=== PATIENT | female | born 1985 | race Caucasian/White ===

== ENCOUNTER 2016-10-23 02:10 | Outpatient (CLI) | payer MEDICAID ==
[~2016-10-23] VITALS: Ht 167.6 cm; Wt 74.0 kg
--- NOTE | 2016-10-23 02:31 | PN ---
Date/Time of Note Date/Time of Note DATE: 10/23/16 TIME: 02:29 OB Subjective Subjective Subjective 30 yo P1 @ 39 wks, presents w VB, no LOF, irreg ctx, good FM POB- x 1 PMH- gastritis PSH- open appendectomy Meds- none NKDA OB Objective Objective Objective Patient not yet on monitor OB Assessment/Plan Other Assessment: patient came to r/o labor Other plan: patient to be placed on monitor nursing to to E to assess if patient is in labor STEPH DAMIAN MD October 23, 2016 02:31
[2016-10-23 02:46] VITALS: Ht 167.6 cm; Wt 74.0 kg
--- NOTE | 2016-10-23 03:41 | PN ---
Date/Time of Note Date/Time of Note DATE: 10/23/16 TIME: 03:40 OB Subjective Subjective Subjective addendum: SVE: 1-60/-3 FHT- Cat 1 [place]- irreg ctx Patient not in active labor reassuring FHT d/c home STEPH DAMIAN MD October 23, 2016 03:41
== END 2016-10-23 03:50 | disposition home or self-care (01) ==
LOC: L-D 02:10 → OBT 02:10
PROVIDERS: ATTEND Obstetrics & Gynecology
DX: O26.893 Other specified pregnancy related conditions, third trimester (principal); Z3A.39 39 weeks gestation of pregnancy
CPT/HCPCS: G0463

== ENCOUNTER 2016-10-23 15:40 | Inpatient (IN) | payer MEDICAID ==
[~2016-10-23] VITALS: Ht 165.1 cm; Wt 84.1 kg
[2016-10-23 16:13] VITALS: Ht 165.1 cm; Wt 84.1 kg
[2016-10-23 16:14] VITALS: BP 118/56; PULSE 69; RESP 18
[2016-10-23] MEDS ORDERED: LACTATED RINGER'S 1,000 ML IV SCH (16:15)
[2016-10-23] MEDS ORDERED: MISOPROSTOL 200 MCG TAB PR PRN (16:30)
[2016-10-23] MEDS ORDERED: CARBOPROST 250 MCG INJ IM PRN (16:30)
[2016-10-23] MEDS ORDERED: METHYLERGONOVINE 0.2 MG INJ IM PRN (16:30)
[2016-10-23] MEDS ORDERED: BUTORPHANOL 2 MG INJ IV PRN (16:30)
[2016-10-23] MEDS ORDERED: OXYTOCIN 30 UNITS/LR 500 ML IV SCH (16:30)
[2016-10-23] MEDS ORDERED: LIDOCAINE 1% (MPF) 30 ML INJ INJ PRN (16:30)
[2016-10-23] MEDS ORDERED: IBUPROFEN 600 MG TAB PO PRN (16:30)
[2016-10-23] MEDS ORDERED: OXYTOCIN 30 UNITS/LR 500 ML IV PRN (16:30)
[2016-10-23] MEDS ORDERED: MINERAL OIL LIGHT 10 ML VIAL TOP ONE (16:30)
--- NOTE | 2016-10-23 16:41 | TRIAGE ---
OB Triage Datetime Report Generated by CPN: 10/23/2016 16:41 Datetime: 10/23/2016 16:17 Headache: Denies Blurred Vision: No RUQ Epigastric Pain: Denies Facial Edema: None Labor Evaluation Frequency: 3-4 Monitor Mode: External Duration (sec)2399: 60 Quality: Moderate Pattern: Normal: <= 5 Contractions in 10 Minutes Resting Tone [place]: Relaxed Heart Rate FHR Baseline Rate: 155 Monitor Mode: External US FHR Baseline Changes: No Baseline Change Variability: Moderate 6-25 bpm Accelerations: 15X15 Decelerations: None Category: Category I Pain Assessment Pain Scale: 6 Pain Presence: Intermittent Pain Type: Contraction Pain Location: Abdomen Pain Relief Measures: Comfort Measures Vaginal Exam Dilatation (cms): 5.0 Effacement (%): 90 Station: -1 Exam By: rosalino rnc Vaginal Bleeding: Normal Show Cervix, Consistency: Soft Cervix, Position: Anterior Presentation 'A': Cephalic Datetime: 10/23/2016 16:00 Time of Arrival: 10/23/2016 16:00 EGA: 39.3 Arrived By: Ambulatory Arrived From: Home Chief Complaint: contractions Movement: Present Time Contractions Began: 10/23/2016 06:00 Rupture of Membranes: Denies Vaginal Discharge: Denies Recent Sexual Intercouse: Denies Abdominal Trauma: Not Applicable Patient Complaints: Contractions Time Provider Notified: 10/23/2016 16:30 Provider Notified: Dr Son Initial Plan: efm/ sve Datetime: 10/23/2016 03:44 Labor Evaluation Frequency: 1-3 Monitor Mode: External Duration (sec)2399: 60-90 Quality: Mild Pattern: Normal: <= 5 Contractions in 10 Minutes Resting Tone [place]: Relaxed Heart Rate FHR Baseline Rate: 145 Monitor Mode: External US FHR Baseline Changes: No Baseline Change Variability: Moderate 6-25 bpm Accelerations: 15X15 Decelerations: None Category: Category I Datetime: 10/23/2016 03:12 Membrane Status: Intact Datetime: 10/23/2016 03:00 Labor Evaluation Frequency: 3 Monitor Mode: External Duration (sec)2399: 90-100 Pattern: Normal: <= 5 Contractions in 10 Minutes Heart Rate FHR Baseline Rate: 145 Monitor Mode: External US FHR Baseline Changes: No Baseline Change Variability: Moderate 6-25 bpm Accelerations: 15X15 Datetime: 10/23/2016 02:55 Assessment Type: Triage Maternal Assessment Level of Consciousness: Fully Conscious Headache: Denies Blurred Vision: No Respiratory Effort: Unlabored; Regular Rhythm; Equal Expansion Nausea/Vomiting: Denies RUQ Epigastric Pain: Denies Facial Edema: None Fall Risk Assessment History of Falling: (0) No Secondary Diagnosis: (0) No Ambulatory Aid: (0) Bedrest/Nurse Assist IV Therapy: (0) No Gait: (0) Normal/Bedrest/Immobile Mental Status: (0) Oriented to Own Ability Fall Score: 0 Fall Risk Score Definition: No Risk: No action required Datetime: 10/23/2016 02:54 Time of Arrival: 10/23/2016 02:54 EGA: 39.3 Arrived By: Ambulatory Arrived From: Home Datetime: 10/23/2016 02:52 Time of Arrival: 10/23/2016 02:10 Arrived By: Wheelchair Arrived From: Home Chief Complaint: UC'S SINCE MIDNIGHT Movement: Present Contractions: Regular Contractions: Q10MIN Rupture of Membranes: Denies Vaginal Discharge: Denies Recent Sexual Intercouse: Denies Abdominal Trauma: Not Applicable Patient Complaints: Contractions Time Provider Notified: 10/23/2016 02:30 Provider Notified: RICKIE Initial Plan: EFViv SVE Datetime: 10/23/2016 02:49 Pain Assessment Pain Scale: 4 Pain Presence: Intermittent Pain Type: Contraction Pain Location: Abdomen Pain Relief Measures: Comfort Measures Vaginal Exam Dilatation (cms): 1.5 Effacement (%): 60 Station: -3 Exam By: GSTTTLILLY Vaginal Bleeding: None Cervix, Consistency: Moderate Cervix, Position: Posterior Presentation 'A': Cephalic Datetime: 10/23/2016 02:32 Stage of : OB Triage Temperature Route: Oral Datetime: 10/23/2016 02:30 Stage of : OB Triage
[2016-10-23] MEDS ORDERED: LACTATED RINGER'S 1,000 ML IV PRN (17:00)
[2016-10-23 17:05] LABS: ADD SCAN DIFF NO
[2016-10-23 17:15] LABS: BASOPHILS % 0.2 % (0.0-2.0); EOSINOPHILS % 0.3 % (0.0-7.0); HEMATOCRIT 35.9 % (37.0-47.0); HEMOGLOBIN 12.4 g/dl (12.0-16.0); LYMPHOCYTES # 0.9 10^3/ul (0.8-2.9); LYMPHOCYTES % 8.3 % (15.0-51.0); MEAN CORPUSCULAR HEMOGLOBIN 33.1 pg (29.0-33.0); MEAN CORPUSCULAR HGB CONC 34.5 g/dl (32.0-37.0); MEAN CORPUSCULAR VOLUME 95.7 fl (82.0-101.0); MEAN PLATELET VOLUME 12.1 fl (7.4-10.4); MONOCYTE # 0.7 10^3/ul (0.3-0.9); MONOCYTES % 6.2 % (0.0-11.0); NEUTROPHIL # 9.4 10^3/ul (1.6-7.5); NEUTROPHILS % 84.3 % (39.0-77.0); PLATELET COUNT 225 10^3/UL (140-415); RED BLOOD COUNT 3.75 10^6/ul (4.20-5.40); RED CELL DISTRIBUTION WIDTH 14.3 % (11.5-14.5); WHITE BLOOD COUNT 11.1 10^3/ul (4.8-10.8)
[2016-10-23 17:24] LABS: INR 0.98
[2016-10-23 17:25] LABS: PARTIAL THROMBOPLASTIN TIME 37.5 Sec (25.0-35.0)
[2016-10-23] MEDS: OXYTOCIN 30 UNITS/LR 500 ML IV SCH ×2 (21:02→21:50)
[2016-10-23 23:30] VITALS: BP 134/64; PULSE 65; RESP 20
--- NOTE | 2016-10-23 23:37 | HP ---
Date/Time of Note Date/Time of Note DATE: 10/23/16 TIME: 23:35 OB - History Hx of Present Free Text/Dictation 39+wks GA labor Care: Good Care Ultrasounds: Normal mid trimester US Obstetrical Complications: None Medical Complications: None Past Family/Social History * Past Medical, Surgical, Family and Obstetric Histories reviewed from chart. OB Admission Exam Vital Signs Vital Signs Vital Signs Date Time Temp Pulse Resp B/P Pulse Ox O2 Delivery O2 Flow Rate FiO2 10/23/16 16:14 98.0 69 18 118/56 Room Air Physical Exam Abdomen: WNL Extremities: Normal Cervical Dilatation: 7cm Effacement: 100% Station: -2 Membranes: Intact Heart Rate: 140's Accelerations: Accelerations Present Decelerations: No Decelerations Varibility: Moderate Contractions on Admission: < 5 Minutes Apart Last 72 hours Lab Results CBC & BMP 10/23/16 16:45 OB Assessment/Plan Plan: Expectant Management Other plan: anticipated LEON RDZ M.D. October 23, 2016 23:37
--- NOTE | 2016-10-23 23:38 | LDN ---
Date/Time of Note Date/Time of Note DATE: 10/23/16 TIME: 23:37 Delivery Summary Placenta Delivered: Spontaneously Meconium: none, Thick Episiotomy: No Perineal laceration: 2 Anesthesia type: None Estimated blood loss: 200 Sponge & Needle done & correct: Yes All needle counts correct: Yes Any foreign bodies felt in the: No Problems: Delivery Information Sex Sex: male Apgars 1 Minute: 8 5 Minute: 9 Suctioning Nose & mouth suctioned at linda: Yes Delee suction performed: Yes Umbilical Cord Umbilical cord with: 3 Vessels Cord presentations: no nuchal cord Cord Blood was obtained: Yes Mother & Baby Disposition Disposition Mom & Baby to Maternity; Good: Yes Baby to NICU: No LEON RDZ M.D. October 23, 2016 23:38
[2016-10-23] MEDS: LACTATED RINGER'S 1,000 ML IV* SCH (23:54)
[2016-10-24] MEDS ORDERED: LANOLIN 7 GM TUBE TOP PRN
[2016-10-24] MEDS ORDERED: SENNA/DOCUSATE NA (8.6MG/50MG) TAB PO PRN
[2016-10-24] MEDS ORDERED: ZOLPIDEM 5 MG TAB PO PRN
[2016-10-24] MEDS ORDERED: CARBOPROST 250 MCG INJ IM PRN
[2016-10-24] MEDS ORDERED: METHYLERGONOVINE 0.2 MG INJ IM PRN
[2016-10-24] MEDS ORDERED: OXYTOCIN 30 UNITS/LR 500 ML IV PRN
[2016-10-24] MEDS ORDERED: MISOPROSTOL 200 MCG TAB PR PRN
[2016-10-24] MEDS ORDERED: DIBUCAINE 1% 30 GM OINT PR PRN
[2016-10-24] MEDS ORDERED: WITCH HAZEL/GLYCERIN PAD PR PRN
[2016-10-24] MEDS ORDERED: OXYCODONE/ASPIRIN (4.88/325) TAB PO PRN
[2016-10-24] MEDS: LACTATED RINGER'S 1,000 ML IV* SCH ×2 (01:45→15:54)
[2016-10-24 03:40] VITALS: BP 116/59; PULSE 76; RESP 18
[2016-10-24] MEDS: IBUPROFEN 600 MG TAB PO SCH ×5 (05:30→23:32)
[2016-10-24 07:58] LABS: ADD SCAN DIFF NO
[2016-10-24 08:00] VITALS: BP 126/72; PULSE 69; RESP 17
[2016-10-24 08:01] LABS: BASOPHILS % 0.2 % (0.0-2.0); EOSINOPHILS % 0.3 % (0.0-7.0); HEMATOCRIT 35.3 % (37.0-47.0); HEMOGLOBIN 11.7 g/dl (12.0-16.0); LYMPHOCYTES # 1.2 10^3/ul (0.8-2.9); LYMPHOCYTES % 8.3 % (15.0-51.0); MEAN CORPUSCULAR HEMOGLOBIN 32.5 pg (29.0-33.0); MEAN CORPUSCULAR HGB CONC 33.1 g/dl (32.0-37.0); MEAN CORPUSCULAR VOLUME 98.1 fl (82.0-101.0); MEAN PLATELET VOLUME 12.2 fl (7.4-10.4); MONOCYTE # 1.3 10^3/ul (0.3-0.9); MONOCYTES % 8.7 % (0.0-11.0); NEUTROPHIL # 12.3 10^3/ul (1.6-7.5); NEUTROPHILS % 81.6 % (39.0-77.0); PLATELET COUNT 210 10^3/UL (140-415); RED CELL DISTRIBUTION WIDTH 14.3 % (11.5-14.5)
[2016-10-24] MEDS: SENNA/DOCUSATE NA (8.6MG/50MG) TAB PO SCH ×2 (09:59→20:49)
[2016-10-24 12:10] VITALS: BP 118/60; PULSE 65; RESP 16
--- NOTE | 2016-10-24 12:19 | PN ---
Date/Time of Note Date/Time of Note DATE: 10/24/16 TIME: 12:19 OB Subjective Subjective Subjective day 1 Afebrile abdomen soft uterus firm lochia normal extremity normal Laboratory Tests Test 10/23/16 16:45 10/24/16 07:12 White Blood Count 11.110^3/ul 15.010^3/ul Red Blood Count 3.7510^6/ul 3.6010^6/ul Hemoglobin 12.4g/dl 11.7g/dl Hematocrit 35.9% 35.3% Mean Corpuscular Volume 95.7fl 98.1fl Mean Corpuscular Hemoglobin 33.1pg 32.5pg Mean Corpuscular Hemoglobin Concent 34.5g/dl 33.1g/dl Red Cell Distribution Width 14.3% 14.3% Platelet Count 44153^3/UL 54880^3/UL Mean Platelet Volume 12.1fl 12.2fl Neutrophils % 84.3% 81.6% Lymphocytes % 8.3% 8.3% Monocytes % 6.2% 8.7% Eosinophils % 0.3% 0.3% Basophils % 0.2% 0.2% Nucleated Red Blood Cells % 0.0/100WBC 0.0/100WBC Neutrophils # 9.410^3/ul 12.310^3/ul Lymphocytes # 0.910^3/ul 1.210^3/ul Monocytes # 0.710^3/ul 1.310^3/ul Eosinophils # 0.010^3/ul 0.010^3/ul Basophils # 0.010^3/ul 0.010^3/ul Nucleated Red Blood Cells # 0.010^3/ul 0.010^3/ul Prothrombin Time 13.0Sec Prothrombin Time Ratio 1.0 INR International Normalized Ratio 0.98 Activated Partial Thromboplast Time 37.5Sec Current Medications Medications (Trade) Dose Ordered Sig/Luciano Route PRN Reason Start Time Stop Time Status Last Admin Dose Admin Lactated Ringer's (Lr) 1,000 ml @ 125 mls/hr Q8H IV 10/23/16 16:15 10/23/16 23:57 DC 10/23/16 16:48 Butorphanol Tartrate (Stadol) 2 mg Q2H PRN IV PAIN 10/23/16 16:30 10/23/16 23:57 DC Lidocaine 30 ml 30 ml ONCE PRN INJ EPISIOTOMY/TEARING 10/23/16 16:30 10/23/16 23:57 DC Oxytocin/Lactated Ringer's 500 ml @ 125 mls/hr ONCE -MAY REPEAT X1 IV 10/23/16 16:30 10/23/16 23:57 DC 10/23/16 21:50 Oxytocin/Lactated Ringer's 500 ml @ 125 mls/hr ONCE IV 10/23/16 16:30 10/23/16 23:57 DC Ibuprofen 600 mg 600 mg ONCE PRN PO Mild Pain (Pain Score 1-3) 10/23/16 16:30 10/23/16 23:57 DC 10/23/16 22:28 Lactated Ringer's 1,000 ml @ 2,000 mls/hr Q30M PRN IV PRE-EPIDURAL BOLUS 10/23/16 17:00 10/23/16 23:57 DC Oxytocin/Lactated Ringer's 500 ml @ 0 mls/hr ONCE PRN IV For Hemorrhage Management 10/23/16 16:30 10/23/16 23:57 DC Methylergonovine Maleate (Methergine) 0.2 mg ONCE PRN IM VAGINAL BLEEDING 10/23/16 16:30 10/23/16 23:57 DC 10/23/16 21:20 Carboprost Tromethamine (Hemabate) 250 mcg ONCE PRN IM VAGINAL BLEEDING 10/23/16 16:30 10/23/16 23:57 DC Misoprostol (Cytotec) 1,000 mcg ONCE PRN WI VAGINAL BLEEDING 10/23/16 16:30 10/23/16 23:57 DC Mineral Oil ONCE ONCE TOP 10/23/16 16:30 10/23/16 16:31 DC Lactated Ringer's (Lr) 1,000 ml @ 125 mls/hr Q8H IV* 10/23/16 23:54 10/24/16 01:45 Ibuprofen (Motrin) 600 mg Q6 PO 10/24/16 00:00 10/24/16 05:30 Oxycodone/Aspirin (Percodan) 2 tab Q3H PRN PO PAIN LEVEL 6-10 10/24/16 00:00 Zolpidem Tartrate (Ambien) 5 mg QHS PRN PO INSOMNIA 10/24/16 00:00 Senna/Docusate Sodium (Senokot-S) 1 tab BID PO 10/24/16 09:00 10/24/16 09:59 Senna/Docusate Sodium (Senokot-S) 1 tab BID PRN PO CONSTIPATION 10/24/16 00:00 Witch Sarika/ Glycerin (Tucks Pads) 1 pad BEDSIDE MEDICATION PRN WI HEMORRHOID/EPISIOTMY PAIN 10/24/16 00:00 10/24/16 01:44 Dibucaine (Nupercainal) 1 applic BEDSIDE MEDICATION PRN WI HEMORRHOID/EPISIOTMY PAIN 10/24/16 00:00 Lanolin ([id number]-L-Uftprm) 1 applic BEDSIDE MEDICATION PRN TOP BEDSIDE FOR EMILIA TO NIPPLES 10/24/16 00:00 10/24/16 01:44 Diphtheria/ Tetanus/Acell Pertussis 0.5 ml 0.5 ml ONCE ONCE IM* 10/25/16 09:00 10/25/16 09:01 Oxytocin/Lactated Ringer's 500 ml @ 0 mls/hr ONCE PRN IV For Hemorrhage Management 10/24/16 00:00 Methylergonovine Maleate (Methergine) 0.2 mg ONCE PRN IM VAGINAL BLEEDING 10/24/16 00:00 Carboprost Tromethamine (Hemabate) 250 mcg ONCE PRN IM VAGINAL BLEEDING 10/24/16 00:00 Misoprostol (Cytotec) 1,000 mcg ONCE PRN WI VAGINAL BLEEDING 10/24/16 00:00 LAURA CASTILLO MD October 24, 2016 12:19
[2016-10-24 16:30] VITALS: BP 112/62; PULSE 67; RESP 16
[2016-10-24 20:00] VITALS: BP 111/54; PULSE 76; RESP 19
[2016-10-24 23:30] VITALS: BP 100/47; PULSE 65; RESP 17
[2016-10-25 04:00] VITALS: BP 101/54; PULSE 58; RESP 18
[2016-10-25] MEDS: IBUPROFEN 600 MG TAB PO SCH ×2 (05:46→12:43)
[2016-10-25 08:20] VITALS: BP 104/53; PULSE 63; RESP 17
[2016-10-25] MEDS ORDERED: DIPHTH/TET/ACEL PERTUSS (ADULT) 0.5 ML VIAL IM* ONE (09:00)
[2016-10-25] MEDS: SENNA/DOCUSATE NA (8.6MG/50MG) TAB PO SCH (09:36)
--- NOTE | 2016-10-25 10:08 | PD.PPDC ---
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
--- NOTE | 2016-10-25 10:10 | DS ---
Date/Time of Note Date/Time of Note DATE: 10/25/16 TIME: 10:08 Discharge Summary Admission/Discharge Info Admit Date/Time October 23, 2016 at 16:22 Discharge Date/Time October 25, 2006 at 10 AM Final Diagnosis Post normal vaginal delivery Patient Condition: Good Procedures Normal spontaneous vaginal delivery Hx of Present Illness Term Hospital Course Satisfactory uneventful Home Meds No Active Prescriptions or Reported Meds Follow-up Plan recommendations given patient advised to make an appointment in 2 weeks to be seen at the clinic LAURA CASTILLO MD October 25, 2016 10:10
== END 2016-10-25 16:09 | disposition home or self-care (01) | DRG 775 ==
LOC: OBT 15:40 → L-D 15:41 → OBT 16:22 → L-D 16:22 → PP1 23:21
PROVIDERS: ADMIT Obstetrics & Gynecology; ATTEND Obstetrics & Gynecology
PROC: 10E0XZZ Delivery of Products of Conception, External Approach (ICD-10-PCS; principal; 2016-10-23)
DX: O70.9 Perineal laceration during delivery, unspecified (principal); Z37.0 Single live birth; Z3A.39 39 weeks gestation of pregnancy
CPT/HCPCS: 85025; 85610; 85730; 86592; 86900; 86901; 90715; 99464; G0463; J2210; J2590; J7120